=== PATIENT | male | born 1995 | race African-American/Black ===

== ENCOUNTER 2021-07-16 16:00 | Emergency (ER) | payer SELFPAY ==
[~2021-07-16] VITALS: Ht 175.3 cm; Wt 65.8 kg
[2021-07-16 16:23] VITALS: BP 107/74
--- NOTE | 2021-07-16 18:04 | NUR ---
PROVIDED W/ FOOT CARE, PROVIDED W/ SOCKS. DISCHARGE IN STABLE CONDITION.
== END 2021-07-16 18:05 | disposition home or self-care (01) ==
LOC: ER 16:05
DX: S90.822A Blister (nonthermal), left foot, initial encounter (principal); S90.821A Blister (nonthermal), right foot, initial encounter; Z59.00 Homelessness unspecified; X58.XXXA Exposure to other specified factors, initial encounter; Y93.89 Activity, other specified; Y92.89 Other specified places as the place of occurrence of the external cause; Y99.8 Other external cause status